=== PATIENT | female | born 1975 | race Caucasian/White ===

== ENCOUNTER → 2018-07-25 | Outpatient (CLI) | payer MEDICAID ==
--- NOTE | 2018-07-25 16:41 | MR ---
EXAMINATION TYPE: MR cervical spine wo con DATE OF EXAM: 07/25/2018 7:38 AM COMPARISON: NONE HISTORY: Numbness of rt. arm Multiplanar MultiSpin echo imaging of the cervical spine was performed. Comparison: none C2-C3: No evidence for degenerative disc disease. No disc bulge/herniation or protrusion. No Canal stenosis. Foramina are patent bilaterally. C3-C4: Moderate disc desiccation noted. Posterocentral disc protrusion with mild effacement ventral t hecal sac. No evidence for herniation. No central stenosis or foraminal encroachment. C4-C5: Moderate disc desiccation. Large disc herniation with extrusion. There is a moderate cord cont act with the focal compressive myelopathy. Severe central stenosis identified. There is left foramina l encroachment noted. C5-C6: Moderate disc desiccation identified. Right paracentral disc protrusion resulting in right for aminal encroachment. No evidence for central stenosis. C6-C7: Moderate disc desiccation noted. Right paracentral disc herniation situated strategically at t he level of the neural foramen resulting in right foraminal encroachment. No evidence for cord contac t or central stenosis. C7-T1: No evidence for degenerative disc disease. No disc bulge/herniation or protrusion. No Canal stenosis. Foramina are patent bilaterally. Cervical segments are intact. There is normal alignment. Craniovertebral junction relationships are within normal limits. IMPRESSION: 1. Multilevel degenerative disc disease. 2. Large disc herniation at C4-5 with disc fragment measuring 9.6 x 5.1 mm. There is severe central s tenosis with focal compressive myelopathy. 3. Additional disc protrusions/herniations as noted.
== END ==
LOC: RADMRIMAIN 07:10
PROVIDERS: ATTEND Psychiatry & Neurology Neurology
DX: M48.02 Spinal stenosis, cervical region (principal); M50.01 Cervical disc disorder with myelopathy, high cervical region; G95.29 Other cord compression
CPT/HCPCS: 72141

== ENCOUNTER → 2018-09-08 | Outpatient (CLI) | payer MEDICAID ==
--- NOTE | 2018-09-08 13:20 | XR ---
EXAMINATION TYPE: XR cervical spine limited DATE OF EXAM: 09/08/2018 COMPARISON: NONE HISTORY: post-op cervical fusion TECHNIQUE: Three views are submitted. FINDINGS: The odontoid is intact. There are no compression deformities. The prevertebral soft tissue structur es are within normal limits. Postsurgical changes C4-C5. Degenerative disc disease C5-C6. IMPRESSION: 1. Surgical changes C4-C5 with degenerative disc disease at C5-C6.
== END | disposition home or self-care (01) ==
LOC: RADXRMAIN 12:45
DX: M50.022 Cervical disc disorder at C5-C6 level with myelopathy (principal); Z98.890 Other specified postprocedural states
CPT/HCPCS: 72040

== ENCOUNTER → 2018-11-01 | Outpatient (CLI) | payer MEDICAID ==
--- NOTE | 2018-11-01 22:51 | MR ---
MRI CERVICAL SPINE: CLINICAL HISTORY: Cervical disc disorder with radiculopathy. History of neck pain with right sided ne ck pain and right hand numbness with surgery August 2018 per patient. TECHNIQUE: Multiplanar, multisequence imaging of the cervical spine is performed without IV contrast. COMPARISON: MRI cervical spine July 25, 2018. FINDINGS: Sagittal images of the cervical spine show the craniocervical junction to remain within nor mal limits. The cervical and upper thoracic spinal cord remains normal in course and caliber. Focus of T2 hyperintensity at C4-C5 level sagittal image 7 is improved from prior. Vertebral alignment is s table and straightened. Artifact from anterior fusion plate and disc material C4-C5 level is still pr esent. The vertebral body and intravertebral disk heights above and below surgical levels remain norm al. Small posterior disc herniation C5-C6 level is seen essentially straight similar to prior. The b one marrow signal intensity is within normal limits above and below postsurgical levels. Axial images show the C2-C3 level to remain within normal limits. Axial images at C3-C4 level show central disc protrusion mildly effacing the anterior thecal sac, lupe ateral neural foramina are patent, no significant change from prior. Axial images at C4-C5 level show artifact from surgical change and disc material with surgical correc tion of posterior disc herniation, mild bilateral neural foraminal narrowing remains present due to m arginal spurring.. Axial images at C5-C6 level broad-based posterior disc protrusion effacing the anterior thecal sac an d causing [id number] bilateral neural foraminal narrowing, no significant change from prior. Axial images at C6-C7 level show right paracentral disc protrusion effacing the anterior thecal sac, bilateral neural foramina are patent. No significant change from prior. Axial images at C7-T1 level remain within normal limits. IMPRESSION: Surgical change C4-C5 level with stable and satisfactory alignment. Improved cord signal at this level suggests improved edema. Less prominent Degenerative changes C3-C4, C5-C6, and C6-C7 le vels show no significant interval change. No new disc herniations are seen.
== END | disposition home or self-care (01) ==
LOC: RADMRIMAIN 20:01
DX: M47.12 Other spondylosis with myelopathy, cervical region (principal); Z98.890 Other specified postprocedural states
CPT/HCPCS: 72141

== ENCOUNTER → 2018-11-28 | Outpatient (CLI) | payer MEDICAID ==
--- NOTE | 2018-11-28 09:14 | MM ---
Reason for exam: clinical finding. Last mammogram was performed 5 years ago. History: Family history of breast cancer in maternal aunt and breast cancer in paternal aunt. Cyst aspiration of the right breast. Took hormonal contraceptives for 8 years. Physical Findings: Nurse did not find any significant physical abnormalities on exam. MG 3D Diag Mammo W/Cad TAB Bilateral CC and MLO view(s) were taken. Prior study comparison: November 14, 2013, CAD bilateral diagnostic mammogram. April 20, 2012, bilateral digital screening mammo w/CAD. The breast tissue is heterogeneously dense. This may lower the sensitivity of mammography. No suspicious abnormality. No significant new findings when compared with previous films. These results were verbally communicated with the patient and result sheet given to the patient on 11/28/18. ASSESSMENT: Negative, BI-RAD 1 RECOMMENDATION: Routine screening mammogram of both breasts in 1 year.
--- NOTE | 2018-11-28 10:48 | US ---
EXAMINATION TYPE: US axilla RT DATE OF EXAM: 11/28/2018 COMPARISON: None CLINICAL HISTORY: R59.0 ENLARGED LYMPH NODES. Patient states right armpit was swollen with no promine nt palpable area felt. Right axilla scanned. Multiple images taken. No prominent masses or lesions visualized. Contralate ral images taken. IMPRESSION: No focal mass or suspicious adenopathy to relate to the patient's right swollen axilla. Clinical management is recommended.
== END ==
LOC: RADMAMWWP 07:23
PROVIDERS: ATTEND Family Medicine
DX: R59.0 Localized enlarged lymph nodes (principal)
CPT/HCPCS: 77062; 77066

== ENCOUNTER → 2018-11-28 | Outpatient (CLI) | payer MEDICAID ==
[2018-11-28 10:48] LABS: Basophils # (A) 0.1 k/uL (0-0.2); Basophils % (A) 1 %; Eosinophils # (A) 0.3 k/uL (0-0.7); Eosinophils % (A) 3 %; HCT 42.9 % (34.0-46.0); HGB 14.3 gm/dL (11.4-16.0); Lymphocytes # (A) 1.9 k/uL (1.0-4.8); Lymphocytes % (A) 22 %; MCH 30.8 pg (25.0-35.0); MCHC 33.2 g/dL (31.0-37.0); MCV 92.6 fL (80.0-100.0); Mean Platelet Volume 7.4; Monocytes # (A) 0.4 k/uL (0-1.0); Monocytes % (A) 4 %; Neutrophils # (A) 5.9 k/uL (1.3-7.7); Neutrophils % (A) 68 %; Platelet Count 231 k/uL (150-450); RBC 4.64 m/uL (3.80-5.40); RDW 12.4 % (11.5-15.5); WBC 8.6 k/uL (3.8-10.6)
[2018-11-28 10:55] LABS: Appearance,Urine Clear (Clear); Bilirubin,Urine Negative (Negative); Blood,Urine Negative (Negative); Color,Urine Light Yellow; Glucose,Urine (UA) Negative (Negative); Ketones,Urine Negative (Negative); Leukocyte Esterase,Urine Negative (Negative); Nitrite,Urine Negative (Negative); Protein,Urine Negative (Negative); Urobilinogen,Urine <2.0 mg/dL (<2.0)
[2018-11-28 11:00] LABS: INR 0.9 (<1.2); Partial Thromboplastin Time 26.8 sec (22.0-30.0); Prothrombin Time 10.1 sec (9.0-12.0)
[2018-11-28 17:22] LABS: Albumin 4.1 g/dL (3.80-4.90); Albumin/Globulin Ratio 1.95 (1.60-3.17); Anion Gap 7.9 mmol/L (4.00-12.00); Calcium 9.2 mg/dL (8.7-10.3); Carbon Dioxide 28.1 mmol/L (21.6-31.8); Globulin 2.1 g/dL (1.6-3.3); Potassium 4.2 mmol/L (3.5-5.5); Total Bilirubin 0.5 mg/dL (0.2-1.2); Total Protein 6.2 g/dL (6.2-8.2)
== END | disposition home or self-care (01) ==
LOC: LABPAT 09:35
DX: Z01.812 Encounter for preprocedural laboratory examination (principal); M50.30 Other cervical disc degeneration, unspecified cervical region
CPT/HCPCS: 36415; 80053; 81003; 85025; 85610; 85730

== ENCOUNTER → 2019-01-01 | Outpatient (CLI) | payer MEDICAID ==
--- NOTE | 2019-01-01 13:36 | XR ---
EXAMINATION TYPE: XR cervical spine w flex/ext DATE OF EXAM: 01/01/2019 COMPARISON: 09/08/2018 HISTORY: Postsurgical change TECHNIQUE: Four views are submitted including flexion and extension lateral views. FINDINGS: The odontoid is intact. There are no compression deformities. The prevertebral soft tissue structur es are within normal limits. Postsurgical changes are seen at levels C4-C5, C5-6 and C6-C7 appear in near anatomic alignment. Loss the normal cervical lordosis likely is postsurgical. On flexion views there appears to be minimal anterolisthesis of C4 on 5 and C5 on C6 which is not see n on extension views appears similar on flexion views. IMPRESSION: 1. Postsurgical changes discussed above.
== END | disposition home or self-care (01) ==
LOC: RADXRMAIN 12:50
DX: M43.22 Fusion of spine, cervical region (principal)
CPT/HCPCS: 72052

== ENCOUNTER → 2019-06-27 | Outpatient (CLI) | payer OTHER ==
--- NOTE | 2019-06-27 10:20 | CT ---
EXAMINATION TYPE: CT soft tissue neck w con DATE OF EXAM: 06/27/2019 HISTORY: Swelling to right side of neck/ lump for over one year per patient. COMPARISON: NONE CT DLP: 495.40 mGycm. Automated Exposure Control for Dose Reduction was Utilized. TECHNIQUE: CT scan of the neck is performed with IV Contrast, patient injected with 100 mL of Isovue 300, axial images are obtained, coronal and sagittal reformatted images are reviewed. FINDINGS: Airway: Nasopharyngeal and oropharyngeal airways are patent. There is fullness of the lingual tonsils filling the vallecula at the tongue base without obvious mass sagittal image 34 for reference. Hypop haryngeal airway distal to this is patent. Thyroid gland felt within normal limits. Overlying metalli c buttons particularly left-sided on axial image 41 causing streak artifact limiting evaluation at th is level. Lung apices are clear. Parotid/submandibular glands: Metallic BB is placed at site of palpable abnormality right parotid lev el. Axial image 68. There is a prominent patent draining external vein at this level seen best parra l image 25. I see no worrisome solid or cystic mass or fluid collection at this level. Parotid glands are symmetric and felt within normal limits. Submandibular glands are symmetric in both within angelic l limits. Carotid/Vascular Structures: No significant stenosis at carotid bulb level. Tortuous course to the di stal vertebral arteries. Osseous Structures: Anterior fusion plate C4-C5 level. Artificial disc material C4-C5 level. Large me tallic disc spacers identified at C5-C6 and C6-C7 levels. Artifact from metallic hardware makes evalu ation of these levels slightly suboptimal. Other: No suspicious greater than 1 cm neck lymph nodes. Scattered subcentimeter lymph nodes are seen throughout the neck bilaterally. IMPRESSION: No suspicious mass or adenopathy identified in the area of clinical concern right neck l evel as detailed above.
== END | disposition home or self-care (01) ==
LOC: RADCTMAIN 08:25
PROVIDERS: ATTEND Family Medicine
DX: R22.1 Localized swelling, mass and lump, neck (principal)
CPT/HCPCS: 70491; Q9967

== ENCOUNTER → 2020-09-12 | Outpatient (CLI) | payer OTHER ==
--- NOTE | 2020-09-16 08:43 | MM ---
Reason for exam: screening (asymptomatic). Last mammogram was performed 1 year and 9 months ago. History: Family history of breast cancer in maternal aunt and breast cancer in paternal aunt. Cyst aspiration of the right breast. Took hormonal contraceptives for 8 years. Physical Findings: A clinical breast exam by your physician is recommended on an annual basis and results should be correlated with mammographic findings. MG Screening Mammo w CAD Bilateral CC and MLO view(s) were taken. Prior study comparison: November 28, 2018, bilateral MG 3d diag mammo w/cad TAB. November 14, 2013, CAD bilateral diagnostic mammogram. The breast tissue is heterogeneously dense. This may lower the sensitivity of mammography. Tiny new group of microcalcifications anterior 8 o'clock left breast. Otherwise, no significant change. ASSESSMENT: Incomplete: need additional imaging evaluation, BI-RAD 0 RECOMMENDATION: Special view mammogram of the left breast. (magnification) If lesion persists on supplemental views, image directed ultrasound is recommended. [facility] will attempt to contact patient to return for supplemental views and ultrasound if indicated.
== END | disposition home or self-care (01) ==
LOC: RADMAMWWP 14:36
PROVIDERS: ATTEND Family Medicine
DX: Z12.31 Encounter for screening mammogram for malignant neoplasm of breast (principal)
CPT/HCPCS: 77067

== ENCOUNTER → 2020-09-18 | Outpatient (CLI) | payer OTHER ==
--- NOTE | 2020-09-18 10:21 | MM ---
Reason for exam: additional evaluation requested from abnormal screening. Last mammogram was performed less than 1 month ago. History: Family history of breast cancer in maternal aunt and breast cancer in paternal aunt. Cyst aspiration of the right breast. Took hormonal contraceptives for 8 years. Physical Findings: Nurse did not find any significant physical abnormalities on exam. MG Work Up Mamm w CAD LT CC with magnification and LM with magnification view(s) were taken of the left breast. Prior study comparison: September 12, 2020, bilateral MG screening mammo w CAD. November 28, 2018, bilateral MG 3d diag mammo w/cad TAB. The breast tissue is heterogeneously dense. This may lower the sensitivity of mammography. Finding: There are fine grouped/clustered calcifications in the lower inner quadrant, anterior position of the left breast 4-5cm from the nipple. These results were verbally communicated with the patient and result sheet given to the patient on 09/18/20. ASSESSMENT: Suspicious, BI-RAD 4 RECOMMENDATION: Stereotactic core biopsy of the left breast. (left breast calcification) Called Dr. Valladares's office with mammographic findings and has scheduled an appointment for the patient for 09/18/20 at 12:[address] Smith. Biopsy scheduled for 10/17/20 at 8:00. PRELIMINARY REPORT CALLED AND FAXED TO DR. SMITH ON 09/18/20.
== END | disposition home or self-care (01) ==
LOC: RADMAMWWP 07:56
PROVIDERS: ATTEND Family Medicine
DX: R92.8 Other abnormal and inconclusive findings on diagnostic imaging of breast (principal)
CPT/HCPCS: 77065

== ENCOUNTER → 2020-09-18 | Outpatient (CLI) | payer OTHER ==
[2020-09-18 12:23] VITALS: BP 124/80; PULSE 68; RESP 18; TEMP 97.9
--- NOTE | 2020-09-18 12:45 | P.GSHP ---
History of Present Illness H&P Date: 09/18/20 Chief Complaint: abnormal left breast mammogram Ammy is a 45 year old white female seen in consultation for Dr. Valladares for mammorgaphic abnormality in her left breast. She does not feel any lumps masses or nodules in either breast. She is not complaining of any pain in her breast or nipple discharge or skin changes. She had a routine screening mammogram performed on 254257 and some tiny new calcifications were seen in the left breast for which a diagnostic mammogram was performed on [id number]. This revealed finding group cluster calcifications in the lower inner quadrant of the left breast for which a stereo biopsy was recommended. She's had a right breast cyst aspirated in the past and this was benign. She has not had any complaints of any trauma or infection in the breast. 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 Social History: Nicotine: half a pack per day/ 15 years, stopped 2 years ago Alcohol: rare drugs: none - Constitutional Constitutional: Denies chills, Denies fever - EENT Eyes: denies blurred vision, denies pain Ears: deny: decreased hearing, tinnitus Ears, nose, mouth and throat: Reports headache, Denies sore throat - Breasts Breasts: bilateral: as per HPI - Cardiovascular Cardiovascular: Denies chest pain, Denies shortness of breath - Respiratory Respiratory: Denies cough, Denies 7 - Gastrointestinal Gastrointestinal: Denies abdominal pain, Denies diarrhea, Denies nausea, Denies vomiting - Genitourinary (Female) Genitourinary: Denies dysuria, Denies hematuria - Menstruation Menstruation: Reports post hysterectomy - Musculoskeletal Musculoskeletal: Reports as per HPI - Integumentary Integumentary: Denies pruritus, Denies rash - Neurological Neurological: Reports as per HPI - Psychiatric Psychiatric: Denies anxiety, Denies depression - Endocrine Endocrine: Reports weight change, Denies fatigue - Hematologic/Lymphatic Hematologic/Lymphatic: Reports as per HPI - Allergic/Immunologic Allergic/Immunologic: Reports as per HPI Past Medical History Additional Past Medical History / Comment(s): varicose veins History of Any Multi-Drug Resistant Organisms: None Reported Past Surgical History: Tonsillectomy Additional Past Surgical History / Comment(s): cervical conization Past Anesthesia/Blood Transfusion Reactions: No Reported Reaction Past Psychological History: No Psychological Hx Reported Smoking Status: Former smoker Past Alcohol Use History: Rare Past Drug Use History: None Reported - Past Family History Mother Family Medical History: Cancer Medications and Allergies Home Medications Medication Instructions Recorded Confirmed Type Meloxicam [Mobic] 7.5 mg PO DAILY 09/18/20 09/18/20 History Methocarbamol [Robaxin-750] 750 mg PO DAILY PRN 09/18/20 09/18/20 History Allergies Allergy/AdvReac Type Severity Reaction Status Date / Time citric acid Allergy Severe Swelling Verified 09/18/20 12:20 tramadol HCl [From Ultram] Allergy Severe hives Verified 09/18/20 12:20 pineapple Allergy Mild Swelling Verified 09/18/20 12:20 Sulfa (Sulfonamide Allergy Rash/Hives Unverified 09/18/20 12:20 Antibiotics) Surgical - Exam Vital Signs Temp Pulse Resp BP Pulse Ox 97.9 F 68 18 124/80 97 09/18/20 12:21 09/18/20 12:21 09/18/20 12:21 09/18/20 12:21 09/18/20 12:21 BMI 29.1 - General well developed, well nourished, no distress - Eyes normal ocular movement - ENT normal pinna, no hearing loss - Neck no masses, trachea midline - Respiratory normal expansion, normal respiratory effort, clear to auscultation - Cardiovascular Rhythm: regular Heart Sounds: normal: S1, S2 - Abdomen Abdomen: soft, non tender, no guarding, no rigid, no rebound - Integumentary normal turgor - Neurologic no disoriented, no combative - Musculoskeletal normal gait, normal posture - Psychiatric oriented to time, oriented to person, oriented to place, speech is normal, memory intact breast exam: BRA 38DD inspection: grade 3 ptosis bilateral, right breast slightly larger than left breast Palpation: Right breast: Multi-positional exam fibrocystic changes, no dominant masses or nodules of concern Right axilla: No adenopathy of concern Left breast: Multi-positional exam fibrocystic changes, no dominant masses or nodules of concern, attention to the lower inner quadrant area does not reveal any lumps or masses or nodules of concern Left axilla: No adenopathy of concern Results Mammogram results reviewed Assessment and Plan Assessment: Impression: 1. Mammographic abnormality left breast lower inner quadrant 2. 2 spine surgeries in the past patient has good mobility at this time Plan: 1. Stereotactic core biopsy left breast Patient is going to stop her mobile for approximately 1 week prior to the procedure. Risks and benefits of the procedure discussed with the patient. She understands these include but are not limited to inability to see the lesion which could result in cancellation of the procedure. Bleeding, infection, reaction to the anesthetic. The patient understands alternatives such as watchful waiting or resection in the operating room are discussed but not recommended. She wishes to proceed in this is scheduled for the near future. Cc: Dr. Valladares encounter 40 minutes, > 50% of time in planning and counselling
== END | disposition home or self-care (01) ==
LOC: WWCWWP 12:06
PROVIDERS: ATTEND Surgery
DX: Z53.9 Procedure and treatment not carried out, unspecified reason (principal)

== ENCOUNTER 2020-09-20 12:41 | Emergency (ER) | payer OTHER ==
[2020-09-20] MEDS ORDERED: HYDROmorphone 1 MG/ML 1 ML SYRINGE IM STA (12:58)
[2020-09-20 13:00] VITALS: RESP 20; TEMP 98
--- NOTE | 2020-09-20 13:05 | ED ---
Lower Extremity Injury HPI - General Stated Complaint: Fall, L Ankle Injury Time Seen by Provider: 09/20/20 12:51 Source: patient, RN notes reviewed Mode of arrival: ambulatory Limitations: no limitations - History of Present Illness Initial Comments: This a 45-year-old female presents emergency Department chief complaint of a fall. Patient states she was coming down her porch states that she tripped falling twisting her left ankle. She had no head injury no loss conscious. Patient states that she has severe left ankle pain. States it is swollen, painful. Patient states that she has normal drop foot of both feet. Patient states that pain is 1010. Patient offers no complaints. - Related Data Home Medications Medication Instructions Recorded Confirmed Meloxicam [Mobic] 7.5 mg PO DAILY 09/18/20 09/18/20 Methocarbamol [Robaxin-750] 750 mg PO DAILY PRN 09/18/20 09/18/20 Previous Rx's Medication Instructions Recorded HYDROcodone/APAP 7.5-325MG [[place] 1 tab PO Q6HR PRN 3 Days #12 tab 09/20/20 7.5-325] Allergies Allergy/AdvReac Type Severity Reaction Status Date / Time citric acid Allergy Severe Swelling Verified 09/20/20 13:10 tramadol HCl [From Ultram] Allergy Severe hives Verified 09/20/20 13:10 pineapple Allergy Mild Swelling Verified 09/20/20 13:10 Sulfa (Sulfonamide Allergy Rash/Hives Unverified 09/20/20 13:10 Antibiotics) Review of Systems ROS Statement: Those systems with pertinent positive or pertinent negative responses have been documented in the HPI. ROS Other: All systems not noted in ROS Statement are negative. Past Medical History Additional Past Medical History / Comment(s): varicose veins History of Any Multi-Drug Resistant Organisms: None Reported Past Surgical History: Tonsillectomy Additional Past Surgical History / Comment(s): cervical conization Past Anesthesia/Blood Transfusion Reactions: No Reported Reaction Past Psychological History: No Psychological Hx Reported Smoking Status: Former smoker Past Alcohol Use History: Rare Past Drug Use History: None Reported - Past Family History Mother Family Medical History: Cancer General Exam Limitations: no limitations General appearance: alert, in no apparent distress Head exam: Present: atraumatic, normocephalic, normal inspection Eye exam: Present: normal appearance, PERRL, EOMI. Absent: scleral icterus, conjunctival injection, periorbital swelling Respiratory exam: Present: normal lung sounds bilaterally. Absent: respiratory distress, wheezes, rales, rhonchi, stridor Cardiovascular Exam: Present: regular rate, normal rhythm, normal heart sounds. Absent: systolic murmur, diastolic murmur, rubs, gallop, clicks Extremities exam: Present: other (Left ankle there is moderate swelling and tenderness of the lateral malleolus region, no proximal tib-fib tenderness neurovascular intact no distal foot tenderness remaining extremity exam and normal limits) Back exam: Present: full ROM. Absent: tenderness Skin exam: Present: warm, dry, intact, normal color. Absent: rash Course Vital Signs 09/20/20 12:59 Temperature 98 F Pulse Rate 96 Respiratory 20 Rate Blood Pressure 136/87 O2 Sat by Pulse 97 Oximetry Procedures - Orthopedic Splinting/Casting Injury #1 Side: left Lower Extremity Injury Location: short leg, ankle Lower Extremity Immobilizer: posterior splint, synthetic pre-padded splint Other Orthopedic Equipment: crutches Medical Decision Making - Medical Decision Making 45-year-old female presented for left ankle injury. Patient has evidence of bimalleolar fracture. She was splinted no vascular intact and will follow-up with orthopedics she is advised to remain nonweightbearing. Disposition Clinical Impression: Fall, Closed bimalleolar fracture of left ankle Disposition: HOME SELF-CARE Condition: Stable Instructions (If sedation given, give patient instructions): Ankle Fracture (ED) Additional Instructions: Please return to the Emergency Department if symptoms worsen or any other concerns. Prescriptions: HYDROcodone/APAP 7.5-325MG [[place] 7.5-325] 1 tab PO Q6HR PRN 3 Days #12 tab PRN Reason: pain Is patient prescribed a controlled substance at d/c from ED?: Yes When asked, does pt state using other controlled substances?: No If prescribed controlled substance>3 days was MAPS reviewed?: Prescribed <3 Days If opioid is for acute pain is fill amount 7 days or less?: Yes If Rx opioid, was Start Talking consent form obtained?: Yes Referrals: Alejandro Valladares DO [Primary Care Provider] - 1-2 days Sp Ling DO [Doctor of Osteopathic Medicine] - 1-2 days Time of Disposition: 14:15
--- NOTE | 2020-09-20 13:48 | XR ---
EXAMINATION TYPE: XR ankle complete LT DATE OF EXAM: 09/20/2020 COMPARISON: None HISTORY: Pain TECHNIQUE: Three-view left ankle FINDINGS: There is a comminuted fracture of the distal metaphyseal tibia with extension to the articu lar surface. An oblique fracture of the distal metadiaphyseal fibula is evident. Overlying soft tissu e swelling is present. A posterior tibial fractures not identified. The ankle mortise is visualized a ppears intact. IMPRESSION: 1. Comminuted metaphyseal distal tibial fracture with intra-articular extension. 2. Transverse fracture distal metadiaphyseal fibula with overlying soft tissue swelling
[2020-09-20] MEDS ORDERED: HYDROcodone/APAP 7.5-325MG 1 EACH TAB PO ONE (14:11)
[2020-09-20 14:51] VITALS: BP 124/77; PULSE 92
== END 2020-09-20 14:38 | disposition home or self-care (01) ==
LOC: EC 12:41
DX: S82.842A Displaced bimalleolar fracture of left lower leg, initial encounter for closed fracture (principal); Z88.2 Allergy status to sulfonamides; Z88.6 Allergy status to analgesic agent; Z91.018 Allergy to other foods; Z87.891 Personal history of nicotine dependence; W01.0XXA Fall on same level from slipping, tripping and stumbling without subsequent striking against object, initial encounter; Y92.009 Unspecified place in unspecified non-institutional (private) residence as the place of occurrence of the external cause
CPT/HCPCS: 73610; 99283; 96372; 29515; J1170

== ENCOUNTER 2020-09-24 13:40 | Day surgery (SDC) | payer OTHER ==
[2020-09-23 09:07] VITALS: BMI 25.8
[2020-09-24] MEDS ORDERED: ONDANSETRON 4 MG/2 ML VIAL ONE (13:57)
[2020-09-24] MEDS ORDERED: LACTATED RINGERS 1,000 ML IV ONE (14:12)
[2020-09-24] MEDS ORDERED: LIDOCAINE 1% (10MG/ML) FOR IV START INTRADERMA ONE (14:13)
[2020-09-24] MEDS ORDERED: DEXAMETHASONE SOD PHOSPHATE 4 MG/ML 1 ML VIAL IV ONE (14:13)
[2020-09-24] MEDS ORDERED: fentaNYL (PF) 50 MCG/ML 2 ML AMP IVP ONE (14:19)
[2020-09-24] MEDS ORDERED: MIDAZOLAM 2 MG/2 ML VIAL IVP ONE ×2 (14:19→14:21)
--- NOTE | 2020-09-24 15:33 | P.ANPRN ---
Procedure Note - Anesthesia - Nerve Block Performed Left Adductor Canal Single Time Out Performed: Yes (1417) Date of Procedure: 09/24/20 Procedure Start Time: 14:26 Procedure Stop Time: 14:30 Location of Patient: PreOp Indication: Acute Post-Operative Pain, Requested by Surgeon Specifically requested for management of pain by DrKerri: Sp Ling Sedation Type: Sedate with meaningful contact maintained Preparation: Sterile Prep Position: Supine Catheter: None Needle Types: Pajunk Needle Gauge: 21 Ultrasound used to visualize needle placement: Yes Ultrasound used to observe medication spread: Yes Injectate: 0.5% Ropivacaine (see comment for volume) (20cc) Blood Aspirated: No Pain Paresthesia on Injection Noted: No Resistance on Injection: Normal Image Stored and Saved: Yes Events: Uneventful and Well Tolerated Left Popliteal Single Time Out Performed: Yes (1417) Date of Procedure: 09/24/20 Procedure Start Time: 14:19 Procedure Stop Time: 14:24 Location of Patient: PreOp Indication: Acute Post-Operative Pain, Requested by Surgeon Sedation Type: Sedate with meaningful contact maintained Preparation: Sterile Prep Position: Right Lateral Catheter: None Needle Types: Pajunk Needle Gauge: 21 Ultrasound used to visualize needle placement: Yes Ultrasound used to observe medication spread: Yes Injectate: 0.5% Ropivacaine (see comment for volume) (20cc) Blood Aspirated: No Pain Paresthesia on Injection Noted: No Resistance on Injection: Normal Image Stored and Saved: Yes Events: Uneventful and Well Tolerated
[2020-09-24] MEDS ORDERED: BUPIVACAIN-EPI 0.5%-1:200,000 30 ML VIAL SQ ONE ×3 (17:15→17:40)
[2020-09-24] MEDS ORDERED: ROPIVACAINE 5 MG/ML 30 ML VIAL ONE (17:17)
[2020-09-24] MEDS ORDERED: fentaNYL (PF) 50 MCG/ML 2 ML AMP ONE (17:17)
[2020-09-24] MEDS ORDERED: LIDOCAINE 1% INJ 10MG/ML (20 ML MDV) ONE (17:17)
[2020-09-24] MEDS ORDERED: PROPOFOL 10 MG/ML 20 ML VIAL IV ONE (17:17)
[2020-09-24] MEDS ORDERED: MIDAZOLAM 2 MG/2 ML VIAL ONE (17:17)
[2020-09-24] MEDS ORDERED: ceFAZolin 1,000 MG in SODIUM CHLORIDE 0.9% 1,000 ML IRRIGATION ONE (17:56)
[2020-09-24] MEDS ORDERED: HYDROmorphone 1 MG/ML 1 ML SYRINGE IVP PRN (19:24)
[2020-09-24] MEDS ORDERED: NALOXONE 0.4 MG/ML 1 ML VIAL IV PRN (19:25)
[2020-09-24] MEDS ORDERED: HYDROcodone/APAP 5-325MG 1 EACH TAB PO PRN (19:25)
[2020-09-24] MEDS ORDERED: ONDANSETRON 4 MG/2 ML VIAL IVP PRN (19:25)
[2020-09-24] MEDS ORDERED: SODIUM CHLORIDE 0.9% 1,000 ML IV SCH (19:30)
[2020-09-24] MEDS ORDERED: HYDROmorphone 0.5 MG/0.5 ML SYRINGE IVP ONE ×2 (19:30→19:35)
--- NOTE | 2020-09-24 19:40 | P.OP ---
Date of Procedure: 09/24/20 Preoperative Diagnosis: Traumatic bimalleolar left ankle fracture, displaced status post fall Postoperative Diagnosis: Traumatic bimalleolar left ankle fracture, displaced status post fall Anesthesia: GETA Pathology: other Condition: stable Disposition: PACU Description of Procedure: BRIEF OPERATIVE NOTE Preoperative Diagnosis: Traumatic bimalleolar left ankle fracture, displaced status post falll Postoperative Diagnosis: Same Procedure: Open reduction internal fixation of right distal fibula fracture and distal tibia fracture Use of fluoroscopic guidance Surgeon: Dr. Ling Neonatal Surgeon: Norbert Urbano is present throughout the entire the case persistence during positioning, dissection, exposure, visualization, and all crucial elements of the case as well as closure. Anesthesia: General anesthesia Estimated blood loss: Less than 30 mL Tourniquet time: Approximately 70 minutes Specimen: None Complications: None apparent Components implanted: Synthes small frag one third semitubular plate with 6screws wit combination of 3.5 cortical and 40 cancellus screws on the lateral fibula, and a 5 hole one third semitubular Synthes small frag plate on the medial tibia with a combination of cortical and cancellus screws with 2 cancellus screws as well Disposition: To recovery room in good stable condition. OPERATIVE INDICATIONS The patient had an acute injury 2 days ago when she slipped and fel when she missed a step at home. 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 She had immediate pain and swelling in her right ankle. She had not had any pain or issues prior to her fall. She was evaluated at our office and found have a comminuted distal fibula fracture with accompanying medialvertical tibia medial malleolus fracture consistent with a Yoo a supination abduction fracture. With the comminution and the at the fracture sites with the bimalleolar fractures I felt that her best chance of healing would be to pursue open reduction internal fixation of distal fibula and tibia. I discussed the risk of occasions alternatives and benefits of surgery in relation to her injury. I discussed the risk of bleeding risk and infection risk and need for further surgery risk of decreased loss of motion loss function malunion nonunion hardware failure nerve damage as well as, occasions with surgery were explained. I answered her questions best my ability and she elected proceed with surgical intervention. OPERATIVE SUMMARY After discussing all the risks, patient alternatives and benefits at length, the patient elected to proceed with surgical intervention, signed informed consent, and presented for their procedure. The patient was seen and examined in the preoperative holding area and the surgical site was marked. The patient was given antibiotics and brought to the operating room. The patient was sedated and intubated by anesthesia in standard fashion. The patient was positioned on to the operating room table in a supine position with a pad under her right hip. We were careful to pad any bony prominences and pressure points. We were careful to maintain the patient's cervical spine and good neutral alignment and position throughout. We used C-arm machines to establish union fluoroscopic guidance in AP and lateral positions. We were able to localize the fractures appropriately. The patient was prepped and draped in a normal standard fashion. An appropriate timeout and keystone protocol performed. We were able to proceed with the surgery. The local wound area was infiltrated with local anesthetic. An incision was made over the lateral aspect of the ankle and I dissected down to the distal fibula appropriately. The fracture was obvious and I was able to mobilize some of the fragments and elevated some of the periosteum leaving as much is intact as possible. I performed a gentle reduction techniques in order to get the fractures well aligned . the fracture was transverse and distal to the syndesmosis. I was able get good reduction but I was not able to get an interfragmentary screw due to the fracture pattern. I was able to get good near- anatomic position. This was confirmed with C-arm guidance. I was then able to measure and position a one third semitubular 6 hole plate and contoured appropriately over the distal fibula and over the fracture site proximally and distally. I was able to place the screws while holding the fracture in place and was able to contour and aligned the plate laterally and placed cortical screws proximally and cancellous screws distally to get excellent fixation at a near anatomic position. This was confirmed with C-arm guidance. The medial fracture had a vertical shear type injury and felt that I needed to place a plate over the fracture along with cancellus angled screws across the fracture site in order to maintain stability and strong fixation. I made an incision medially over the distal tibia and medial malleolus. I was able to dissect down to expose the fracture easily. With the bone clamp I was able to get excellent reduction of the fracture itself. I had near anatomic alignment and position. I was able checked the articular surface and clean out any bony fragments that I was able to see. I did alignment at the articular surface. I then used guide pins to establish fixation at the medial malleolus from the distal medial malleolus angled to avoid the articular surface and into the distal fibula area I was able to do drill with a cannulated drill and place 2 screws with partially-threaded cancellus screws to get fixation at the medial malleolus. I was able to remove the clamp. I then placed a 5 hole one third semitubular plate which I contoured to establish 2 holes proximal to the fracture and 3 holes distal. With the fracture in near anatomic alignment I was able place 2 bicortical screws proximal to the fracture site and 1 screw perpendicular to the fracture line and distal to the fracture site at the medial malleolus aligned with the joint surface. I was able get excellent fixation and reduction of fracture. I was then able to tighten down the cannulated screws at the medial malleolus for further fixation and excellent alignment and position of the fracture. This was confirmed on C-arm guidance. I performed medial and lateral varus and valgus stress at the ankle after fixation was performed and there is no evidence of any widening or displacement of the syndesmosis or the ankle mortise. I do not feel we needed any further fixation. We were able to proceed with closure. Deep layers were closed with 2-0 Vicryl subcu tissues closed 2-0 Vicryl and skin was closed with 3-0 nylon. The wound was cleaned and dried and dressed with the appropriate dressing. I placed a sugar tong and posterior mold well-padded well molded splint at the right lower leg. The drapes were broken down. The patient was gently rolled back onto their hospital bed being careful to maintain their cervical spine and good neutral alignment and position. They were woken up by anesthesia, extubated, and brought to the recovery room in good stable condition. The patient will be able to be discharged from the hospital after appropriate observation but given the hour she will likely stay overnight for observation a nd for appropriate postoperative care, medical management and monitoring. We will continue to follow them closely about the postoperative course. She will likely be able to be discharged home tomorrow and I plan see her back in the office in approximately 1 week's time or sooner if she is having problems.
[2020-09-24] MEDS: HYDROcodone/APAP 5-325MG 1 EACH TAB PO PRN (20:54)
[2020-09-25] MEDS: HYDROcodone/APAP 5-325MG 1 EACH TAB PO PRN ×2 (01:10→08:10)
[2020-09-25 08:05] VITALS: BP 111/68; PULSE 87; RESP 14; TEMP 98.2
[2020-09-25] MEDS ORDERED: SENNOSIDES-DOCUSATE SODIUM 1 EACH TAB PO SCH (09:00)
--- NOTE | 2020-09-25 09:20 | FL ---
EXAMINATION TYPE: FL guidance operating room DATE OF EXAM: 09/24/2020 HISTORY: Fluoroscopy time 1 minute and 9 seconds of fluoroscopy provided. IMPRESSION: 1. Fluoroscopy time.
--- NOTE | 2020-09-25 09:40 | P.DS ---
Providers Date of admission: 09/24/20 Attending physician: Sp Ling Primary care physician: [facility] Hospital Course: The patient presented on the day of admission as per their operative note. She underwent open reduction internal fixation of her bimalleolar ankle fracture. She had sustained a fracture when she had fallen missing a step at home. She was evaluated for her left lower extremity and found to have an unstable fracture and underwent surgery yesterday as per her note. Today she feels her ankle is sore but she is doing well. She has been up with her walker nonweightbearing. She is tolerating her diet. Physical Exam The dressing and splint is clean dry and intact. There is no erythema no drainage. There is no purulence no evidence of infection. Her toes are pink and have good capillary refill Abdomen soft and nontender. Chest has good excursion with deep inspiration and expiration. The patient has active and passive range of motion intact at the upper and lower extremities. There is no acute change in neurologic status. She has dorsal flexion plantarflexion her toes. Her thighs and calves soft nontender Hospital Course Postoperative day #1 status post open reduction internal fixation of left bimalleolar ankle fracture. The patient is making good progress The patient has been making good progress postoperatively. They have completed the prophylactic antibiotics without any signs or symptoms of infection. The patient has been able to advance their diet, and is tolerating diet adequately. The pain was initially controlled with IV medications and is now controlled appropriately with oral medications. The patient has been able to increase their mobilization. The patient has progressed appropriately. I think they are in good stable condition for discharge today. They will be sent home with appropriate prescriptions. I answered their questions to the best of my ability in a language that they can understand and they are agreeable with the plan. They will follow up as directed next week on Tuesday the . Patient Condition at Discharge: Good Plan - Discharge Summary Discharge Rx Participant: No New Discharge Prescriptions: New HYDROcodone/APAP 5-325MG [Parker 5] 1 each PO Q6HR PRN #28 tab PRN Reason: Pain Sennosides [Senna] 8.6 mg PO Q12HR PRN #30 tablet PRN Reason: Constipation No Action Meloxicam [Mobic] 7.5 mg PO DAILY Methocarbamol [Robaxin-750] 750 mg PO DAILY PRN PRN Reason: Muscle Spasm HYDROcodone/APAP 7.5-325MG [Parker 7.5-325] 1 tab PO Q6HR PRN 3 Days #12 tab PRN Reason: pain Discharge Medication List Meloxicam [Mobic] 7.5 mg PO DAILY 09/18/20 [History] Methocarbamol [Robaxin-750] 750 mg PO DAILY PRN 09/18/20 [History] HYDROcodone/APAP 7.5-325MG [Parker 7.5-325] 1 tab PO Q6HR PRN 3 Days #12 tab 09/20/20 [Rx] HYDROcodone/APAP 5-325MG [Parker 5] 1 each PO Q6HR PRN #28 tab 09/25/20 [Rx] Sennosides [Senna] 8.6 mg PO Q12HR PRN #30 tablet 09/25/20 [Rx] Follow up Appointment(s)/Referral(s): Sp Ling DO [Doctor of Osteopathic Medicine] - 09/30/20 (Follow-up with Dr. Ling on September 30. Please arrange for appointment for specific time for patient) Activity/Diet/Wound Care/Special Instructions: Keep splint dry and intact and clean. Elevate left lower extremity as much as possible. Nonweightbearing left lower extremity Discharge Disposition: HOME SELF-CARE
== END 2020-09-25 11:54 | disposition home or self-care (01) ==
LOC: OR 13:40 → 1SOBS 19:03 → OR 09-25 11:54
PROVIDERS: ATTEND Orthopaedic Surgery Orthopaedic Surgery of the Spine
DX: S82.842A Displaced bimalleolar fracture of left lower leg, initial encounter for closed fracture (principal); W01.0XXA Fall on same level from slipping, tripping and stumbling without subsequent striking against object, initial encounter; Y92.009 Unspecified place in unspecified non-institutional (private) residence as the place of occurrence of the external cause; Z97.3 Presence of spectacles and contact lenses; Z88.2 Allergy status to sulfonamides; Z87.891 Personal history of nicotine dependence; Z90.710 Acquired absence of both cervix and uterus; Z88.5 Allergy status to narcotic agent; Z91.018 Allergy to other foods
CPT/HCPCS: 27814; 97161; 64447; 64450; 76942; 73610; C1713; J2250; J1100; J0690 ×2; J2405; J2001; J3010; J1170 ×2; J2795; J2704; 64445

== ENCOUNTER → 2020-10-17 | Day surgery (SDC) | payer OTHER ==
[2020-10-17 07:24] VITALS: RESP 16; TEMP 98.6
--- NOTE | 2020-10-17 08:43 | P.PCN ---
Date of Procedure: 10/17/20 Preoperative Diagnosis: Microcalcifications of concern left breast, lower inner quadrant Postoperative Diagnosis: Same Procedure(s) Performed: Stereotactic core biopsy left breast Anesthesia: local Surgeon: Ann Smith Estimated Blood Loss (ml): 0 Pathology: other (breast tissue) Condition: stable Disposition: same day Indications for Procedure: Microcalcifications of concern left breast Operative Findings: Radiographic of specimen reveals microcalcifications of concern have been sampled Description of Procedure: The patient was brought to the stereotactic core biopsy room. She was positioned on the low-fat table. A cc from below approach was utilized. A diving coach film was obtained and the calcifications of concern were identified. The calcifications were then targeted. The breast was prepped using Betadine. 24 mL of 1% lidocaine was used to anesthetize the area of concern. A vacuum- assisted core rotating biopsy needle was passed to the correct coordinates and fired. Postfire film was obtained and showed the needle to be in the correct location. 12 core biopsy specimens were obtained. Radiograph of the specimens revealed the microcalcifications of concern had been sampled. A secure marked Top-thread marker was placed in radiograph revealed this to be in the correct location. The specimen was sent to pathology. The patient tolerated the procedure in stable condition. The patient will follow-up with Dr. Gibbons next week.
[2020-10-17 09:17] VITALS: BP 122/73; PULSE 67
--- NOTE | 2020-10-17 16:28 | MM ---
EXAMINATION TYPE: MG stereo VAD BX LT DATE OF EXAM: 10/17/2020 COMPARISON: NONE CLINICAL HISTORY: Abnormal mammogram TECHNIQUE: Stereotactic guided core biopsy of left breast. FINDINGS: The procedure of stereotactic guided core biopsy was explained to the patient. Benefits, alternatives, and risks were discussed. An informed consent was then obtained. The shortness pathway for biopsy was chosen. Shortness pathway was inferior approach. Targeting was provided by radiology. Procedure was performed by surgery. Specimen is presented. The targeted calcifications are within the specimen. IMPRESSION: 1. Successful stereotactic core biopsy left breast calcifications Recommendations: 1. Recommendations are pending pathology results. Pathology Results: Benign LEFT BREAST, STEREOTACTIC CORE BIOPSY: Fibrocystic changes including sclerosing adenosis with calcifications, fibrosis and small cysts. Recommendation Follow up mammogram of the left breast in 6 months. MTDD
== END ==
LOC: RADMAMWWP 07:03
PROVIDERS: ATTEND Surgery
DX: N60.22 Fibroadenosis of left breast (principal); N60.32 Fibrosclerosis of left breast
CPT/HCPCS: 88305; 19081; J2001

== ENCOUNTER → 2020-10-24 | Outpatient (CLI) | payer OTHER ==
[2020-10-24 13:52] VITALS: BP 122/78; PULSE 77; RESP 18; TEMP 98.3
--- NOTE | 2020-10-24 14:18 | P.PN ---
Subjective Progress Note Date: 10/24/20 Principal diagnosis: Patient here for surgery detected core biopsy results Ammy underwent a stereotactic core biopsy of her left breast on Tuesday. Pathology revealed fibrocystic changes including sclerosing adenosis with calcifications, fibrosis and small cysts. The patient post procedure did well with no complaints. The findings were felt to be concordant. The patient will have a follow-up left breast mammogram in 6 months. Objective - Vital Signs Vital signs: Vital Signs Temp 98.3 F 10/24/20 13:50 Pulse 77 10/24/20 13:50 Resp 18 10/24/20 13:50 BP 122/78 10/24/20 13:50 Pulse Ox 96 10/24/20 13:50 Intake & Output 10/23/20 10/24/20 10/24/20 18:59 06:59 18:59 Weight 81.647 kg - Constitutional General appearance: Present: average body habitus - EENT Eyes: Present: EOMI ENT: Present: hearing grossly normal - Neck Neck: Present: normal ROM - Integumentary Integumentary Comment(s): left breast biopsy site clean and dry, no evidence of infection Integumentary: Present: normal turgor - Psychiatric Psychiatric: Present: A&O x's 3 Assessment and Plan Assessment: Fashion: 1. Patient status post are detected core biopsy left breast/findings consistent with fibrocystic changes Plan: 1. Left breast mammogram and examination in 6 months CC: Dr. Valladares encounter 10 minutes, > 50% of time in planning and counselling
== END | disposition home or self-care (01) ==
LOC: WWCWWP 13:10
PROVIDERS: ATTEND Surgery
DX: Z53.9 Procedure and treatment not carried out, unspecified reason (principal)

== ENCOUNTER → 2021-04-17 | Outpatient (CLI) | payer MEDICARE, OTHER | END | disposition home or self-care (01) ==

== ENCOUNTER → 2021-12-23 | Outpatient (CLI) | payer MEDICARE, OTHER ==
--- NOTE | 2021-12-24 10:47 | MM ---
Reason for exam: screening (asymptomatic). Last mammogram was performed 8 months ago. History: Family history of breast cancer in maternal aunt and breast cancer in paternal aunt. Benign MG stereo VAD BX LT of the left breast, October 17, 2020. Cyst aspiration of the right breast. Took hormonal contraceptives for 8 years. Physical Findings: A clinical breast exam by your physician is recommended on an annual basis and results should be correlated with mammographic findings. MG 3D Screening Mammo W/Cad Bilateral CC and MLO view(s) were taken. Prior study comparison: September 12, 2020, bilateral MG screening mammo w CAD. November 28, 2018, bilateral MG 3d diag mammo w/cad TAB. There are scattered fibroglandular densities. There is no discrete abnormality. ASSESSMENT: Negative, BI-RAD 1 RECOMMENDATION: Routine screening mammogram of both breasts in 1 year.
== END | disposition home or self-care (01) ==
LOC: RADMAMWWP 13:04
PROVIDERS: ATTEND Family Medicine
DX: Z12.31 Encounter for screening mammogram for malignant neoplasm of breast (principal); Z80.3 Family history of malignant neoplasm of breast
CPT/HCPCS: 77063; 77067

== ENCOUNTER → 2024-03-02 | Outpatient (CLI) | payer MEDICARE, OTHER ==
--- NOTE | 2024-03-05 12:32 | MM ---
Reason for Exam: Screening (asymptomatic). Last screening mammogram was performed 12 month(s) ago. Patient History: Menarche at age 14. First Full-Term at age 32. Late child-bearing (after 32). Hysterectomy at age 40. Patient used Hormonal Contraceptives for 8 years. Cyst Aspiration on the Right side. 10/17/2020, Benign Core Biopsy on the left side. Paternal aunt had breast cancer. Maternal aunt had breast cancer. Risk Values: Marcy 5 year model risk: 1.7%. NCI Lifetime model risk: 15.0%. Prior Study Comparison: 04/17/2021 Left Diagnostic Mammogram, [facility]. 12/23/2021 Bilateral Screening Mammogram, [facility]. 02/10/2023 Bilateral MG screening mammo w CAD, [facility]. Tissue Density: The breasts are heterogeneously dense, which may obscure small masses. Findings: Analyzed By CAD. The pattern is symmetrical. Abdomen appear stable. Core marker is within the left breast. Some benign calcifications present bilaterally. No significant interval change is evident. No suspicious groups of microcalcifications, spiculated or lobular masses, architectural distortion or other secondary signs of malignancy are mammographically apparent. Overall Assessment: Benign, BI-RAD 2 Management: Screening Mammogram of both breasts in 1 year. A negative mammogram report should not preclude additional follow up of suspicious palpable abnormalities. Patient should continue monthly self breast exam. A clinical breast exam by your physician is recommended on an annual basis and results should be correlated with mammographic findings. Note on Marcy scores and lifetime risk: 1. A Marcy score greater than 3% is considered moderate risk. If this is the case, consider specialist referral to assess eligibility for a risk reducing agent. 2. If overall lifetime risk for the development of breast cancer is 20% or higher, the patient may qualify for future screening with alternating mammogram and breast MRI. Electronically signed and approved by: Juan Feng D.O. Radiologis
== END | disposition home or self-care (01) ==
LOC: RADMAMWWP 10:12
PROVIDERS: ATTEND Family Medicine
DX: Z12.31 Encounter for screening mammogram for malignant neoplasm of breast (principal); Z80.3 Family history of malignant neoplasm of breast
CPT/HCPCS: 77067

== ENCOUNTER → 2025-05-09 | Outpatient (CLI) | payer MEDICARE ==
--- NOTE | 2025-05-10 16:39 | MM ---
Reason for Exam: Screening (asymptomatic). Last mammogram was performed 1 year(s) and 2 month(s) ago. Patient History: Menarche at age 14. First Full-Term at age 32. Late child-bearing (after 32). Hysterectomy at age 40. Postmenopausal. Patient used Hormonal Contraceptives for 8 years. Cyst Aspiration on the Right side. 10/17/2020, Benign Core Biopsy on the left side. Paternal aunt had breast cancer. Maternal aunt had breast cancer. Risk Values: Marcy 5 year model risk: 1.7%. NCI Lifetime model risk: 14.7%. Prior Study Comparison: 12/23/2021 Bilateral Screening Mammogram, [facility]. 02/10/2023 Bilateral MG screening mammo w CAD, [facility]. 03/02/2024 Bilateral MG screening mammo w CAD, [facility]. Tissue Density: The breasts are almost entirely fatty. Findings: Analyzed By CAD. There is no suspicious group of microcalcifications or new suspicious mass in either breast. Overall Assessment: Negative, BI-RAD 1 Management: Screening Mammogram of both breasts in 1 year. Patient should continue monthly self-breast exams. A clinical breast exam by your physician is recommended on an annual basis. This exam should not preclude additional follow-up of suspicious palpable abnormalities. Note on Marcy scores and lifetime risk: 1. A Marcy score greater than 3% is considered moderate risk. If this is the case, consider specialist referral to assess eligibility for a risk reducing agent. 2. If overall lifetime risk for the development of breast cancer is 20% or higher, the patient may qualify for future screening with alternating mammogram and breast MRI. [facility], , 05/10/2025 4:35 PM. Electronically signed and approved by: Saleem Pastrana M.D. Radiologist
== END | disposition home or self-care (01) ==
LOC: RADMAMWWP 15:06
PROVIDERS: ATTEND Family Medicine
DX: Z12.31 Encounter for screening mammogram for malignant neoplasm of breast (principal); R92.313 Mammographic fatty tissue density, bilateral breasts; Z92.0 Personal history of contraception; Z78.0 Asymptomatic menopausal state; Z80.3 Family history of malignant neoplasm of breast
CPT/HCPCS: 77063; 77067